=== PATIENT | male | born 1950 | race Caucasian/White ===

== ENCOUNTER 2022-03-22 09:49 | Emergency (ER) | payer MEDICARE, OTHER ==
[~2022-03-22] VITALS: Ht 175.2 cm; Wt 120.0 kg
[2022-03-22] MEDS ORDERED: FLUORESCEIN (FLUOR-I-STRIPS) 1 MG STRP OU ONE (10:30)
[2022-03-22] MEDS ORDERED: BSS 15 ML IR ONE (10:30)
[2022-03-22] MEDS ORDERED: TETRACAINE 0.5% OPHTH SOLN 4 ML BTL (SINGLE DOSE ONLY) OU ONE (10:30)
--- NOTE | 2022-03-22 10:32 | ED EENT ---
History of Present Illness General Chief Complaint: Eye Problems Stated Complaint: R EYE IRRITATED Nursing Triage Note: USED LEAF BLOWER YESTERDAY AFTERNOON ADN FEELS LIKE HE GOT SOMETHING IN HIS EYE. WAS NOT NOTICED UNTIL AFTER HIS SHOWER LAST EVENING SCRATCHY, IRRITATED AND RED, RINSED WITH SALINE DROPS FOR RELIEF BUT DECIDED TO WAIT AND SEE IF IT IMPROVED OVERNIGHT. Source: patient Exam Limitations: no limitations History of Present Illness Date Seen by Provider: Mar 22, 2022 Time Seen by Provider: 10:20 Initial Comments Patient is a 72-year-old male who presents to the emergency department with a chief complaint of foreign body sensation in his right eye. Patient states that he was using a leaf blower yesterday and feels like he might of gotten something in there. He has continued to have a little irritation with some redness. He used some [id number] eyedrops and what sounds like some Lacri-Lube to try and alleviate symptoms. He denies any visual field loss or significantly blurry vision. No actual eye pain. He is not diabetic. All other review of systems reviewed and negative except as stated. Timing/Duration: gradual Severity: mild Location: eye (R) Prearrival Treatment: flushing eyes Associated Symptoms: denies symptoms Allergies and Home Medications Allergies Coded Allergies: No Known Drug Allergies (Unverified , 03/22/22) Patient Home Medication List Home Medication List Reviewed: Yes Review of Systems Review of Systems Constitutional: see HPI Eyes: Foreign Body Sensation Ears: No Symptoms Reported Respiratory: no symptoms reported Cardiovascular: no symptoms reported Gastrointestinal: no symptoms reported Skin: no symptoms reported All Other Systems Reviewed Negative Unless Noted: Yes Past Vrpnono-Vyptql-Mxcoxc Hx Patient Social History Tobacco Use?: No Use of E-Cig and/or Vaping dev: No Substance use?: No Alcohol Use?: No Pt feels they are or have been: No Immunizations Up To Date First/Initial COVID19 Vaccinat: 06/21/21 Second COVID19 Vaccination Mauricio: 09/28/21 COVID19 Vaccine Programs Assistant: Linea Physical Exam Vital Signs Vital Signs - First Documented 03/22/22 10:01 Temp 36.8 Pulse 51 Resp 18 B/P (MAP) 145/75 (98) Pulse Ox 95 O2 Delivery Room Air Height, Weight, BMI Height: '" Weight: lbs. oz. kg; 39.00 BMI Method: General Appearance: WD/WN, no apparent distress Eyes: bilateral eye normal inspection, bilateral eye PERRL, bilateral eye EOMI Nose: normal inspection Cardiovascular: regular rate, rhythm Respiratory: normal breath sounds, no respiratory distress, no accessory muscle use Skin: normal color, warm/dry Procedures/Interventions Eye : Location: right eye Eye Irrigated w/ Saline (ccs): 30 Anesthesia (gtts): Tetracaine Progress/Procedure Conclusion Patient noted to have linear abrasions along the margin of the iris and the sclera from approximately 7:00 to 10:00. No obvious foreign body. Progress/Results/Core Measures Results/Orders My Orders Orders - RICARDO TURCIOS MD Tetracaine 0.5% Ophth Tiffani Sdv (Tetracai (03/22/22 10:30) Fluorescein Strips ([id number]) (03/22/22 10:30) Balanced Salt Irrigation Soln (Bss Irrig (03/22/22 10:30) Medications Given in ED Current Medications Medications Dose Ordered Sig/Ruth Route Start Time Stop Time Status Last Admin Dose Admin Balanced Salt Solution 15 ml ONCE ONCE IR 03/22/22 10:30 03/22/22 10:31 DC 03/22/22 10:34 15 ML Fluorescein Sodium 1 mg ONCE ONCE OU 03/22/22 10:30 03/22/22 10:31 DC 03/22/22 10:35 1 MG Tetracaine HCl 4 ml ONCE ONCE OU 03/22/22 10:30 03/22/22 10:31 DC 03/22/22 10:34 4 ML Vital Signs/I&O 03/22/22 10:01 Temp 36.8 Pulse 51 Resp 18 B/P (MAP) 145/75 (98) Pulse Ox 95 O2 Delivery Room Air Blood Pressure Mean: 98 Departure Impression Primary Impression: Corneal abrasion, right Qualified Codes: S05.01XA - Injury of conjunctiva and corneal abrasion without foreign body, right eye, initial encounter Disposition: HOME, SELF-CARE Condition: Stable Departure-Patient Inst. Decision time for Depature: 10:45 Referrals: CLOVIS ALEX DO (PCP/Family) Primary Care Physician Patient Instructions: Corneal Abrasion Add. Discharge Instructions: Use the antibiotic drops as directed for the next 5 days. Tylenol and/or ibuprofen as needed for pain. Return to the emergency department for any fever, worsening eye drainage, worsening eye pain or any other emergent concerning symptoms. Scripts Ciprofloxacin HCl (Ciloxan) 0.3 % Drops 2 DROPS OD Q2H for 5 Days, #15 ML 3 Refills 2 drops in the right eye every 2 hours while awake x2 days then every 4 hours for the next 3 days Prov: RICARDO TURCIOS MD 03/22/22 Images Eye 1 - Abrasion, Dye uptake (fluorescein) RICARDO TURCIOS MD Mar 22, 2022 10:32
[2022-03-22] MEDS ORDERED: CIPR5DRO OD (10:48)
[2022-03-22 11:00] VITALS: BP 145/75
== END 2022-03-22 11:03 | disposition home or self-care (01) ==
LOC: ER 09:53
DX: S05.01XA Injury of conjunctiva and corneal abrasion without foreign body, right eye, initial encounter (principal); X58.XXXA Exposure to other specified factors, initial encounter
CPT/HCPCS: 99281